=== PATIENT | female | born 1960 | race Caucasian/White ===

== ENCOUNTER 2017-08-23 15:06 | Emergency (ER) | payer OTHER, SELFPAY ==
[2017-08-23] MEDS ORDERED: Ketorolac Tromethamine 30 MG/ML VIAL ONE (16:20)
== END 2017-08-23 16:41 | disposition home or self-care (01) ==
LOC: ERS 15:06
DX: M54.41 Lumbago with sciatica, right side (principal); I10 Essential (primary) hypertension; G43.909 Migraine, unspecified, not intractable, without status migrainosus; I25.10 Atherosclerotic heart disease of native coronary artery without angina pectoris; E11.9 Type 2 diabetes mellitus without complications; F32.9 Major depressive disorder, single episode, unspecified; Z79.4 Long term (current) use of insulin; Z87.891 Personal history of nicotine dependence
CPT/HCPCS: 96372; J1885

== ENCOUNTER 2017-09-27 12:09 | Emergency (ER) | payer OTHER, SELFPAY ==
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
--- NOTE | 2017-09-27 13:10 | RAD ---
THREE VIEWS THORACIC SPINE: Indication: Back injury. Comparison: None. IMPRESSION: There is post-surgical change of prior CABG. There is multilevel spondylosis of the thoracic spine. N o acute fracture or subluxation is evident. There are surgical clips within the right upper quadrant of the abdomen. POS: [facility]
[2017-09-27] MEDS ORDERED: Diazepam 5 MG TAB ONE (13:13)
== END 2017-09-27 14:07 | disposition home or self-care (01) ==
LOC: ERS 12:09
DX: M25.512 Pain in left shoulder (principal); G43.909 Migraine, unspecified, not intractable, without status migrainosus; I25.10 Atherosclerotic heart disease of native coronary artery without angina pectoris; E11.9 Type 2 diabetes mellitus without complications; F32.9 Major depressive disorder, single episode, unspecified; I10 Essential (primary) hypertension; Z79.4 Long term (current) use of insulin; Z87.891 Personal history of nicotine dependence; Z79.899 Other long term (current) drug therapy; V49.60XA Unspecified car occupant injured in collision with unspecified motor vehicles in traffic accident, initial encounter
CPT/HCPCS: 72072

== ENCOUNTER 2017-11-28 18:55 | Emergency (ER) | payer OTHER, SELFPAY ==
[2017-11-28] MEDS ORDERED: Ondansetron ODT 4 MG TAB ONE (20:18)
--- NOTE | 2017-11-28 20:56 | RAD ---
FOUR VIEWS RIGHT KNEE 11/28/17 HISTORY: Right knee pain after slipping and falling today. FINDINGS: There is diffuse osteopenia. No fracture or dislocation is seen. There is no joint space narrowing id entified. There is a small joint effusion present. Minimal vascular calcifications are seen posterior to the knee. IMPRESSION: 1. Osteopenia without evidence of an acute fracture. 2. Small suprapatellar joint effusion. POS: [facility]
== END 2017-11-28 20:48 | disposition home or self-care (01) ==
LOC: ERS 18:55
DX: S83.91XA Sprain of unspecified site of right knee, initial encounter (principal); I10 Essential (primary) hypertension; G43.909 Migraine, unspecified, not intractable, without status migrainosus; I25.10 Atherosclerotic heart disease of native coronary artery without angina pectoris; E11.9 Type 2 diabetes mellitus without complications; F32.9 Major depressive disorder, single episode, unspecified; Z79.4 Long term (current) use of insulin; Z87.891 Personal history of nicotine dependence; W01.0XXA Fall on same level from slipping, tripping and stumbling without subsequent striking against object, initial encounter
CPT/HCPCS: 96372; J2270; Q0162

== ENCOUNTER 2017-12-06 21:05 | Emergency (ER) | payer SELFPAY ==
[2017-12-06] MEDS ORDERED: Ketorolac Tromethamine 30 MG/ML VIAL ONE (22:56)
== END 2017-12-06 23:12 | disposition home or self-care (01) ==
LOC: ERS 21:05
DX: M25.561 Pain in right knee (principal); I10 Essential (primary) hypertension; G43.909 Migraine, unspecified, not intractable, without status migrainosus; I25.10 Atherosclerotic heart disease of native coronary artery without angina pectoris; E11.9 Type 2 diabetes mellitus without complications; Z79.4 Long term (current) use of insulin; F32.9 Major depressive disorder, single episode, unspecified; Z87.891 Personal history of nicotine dependence; Z79.899 Other long term (current) drug therapy; W22.03XD Walked into furniture, subsequent encounter
CPT/HCPCS: 96372; J1885

== ENCOUNTER 2018-01-29 18:45 | Emergency (ER) | payer SELFPAY ==
--- NOTE | 2018-01-29 19:20 | RAD ---
FOUR VIEWS OF THE RIGHT KNEE: 01/29/18 INDICATION: Right knee pain. COMPARISON: Prior exam dated 11/28/17. FINDINGS: No acute fracture or subluxation is evident. There is a mild joint capsular distention. IMPRESSION: No acute osseous abnormality with mild joint capsular distention. POS: [facility]
[2018-01-29] MEDS ORDERED: Ketorolac Tromethamine 30 MG/ML VIAL ONE (20:54)
== END 2018-01-29 20:58 | disposition home or self-care (01) ==
LOC: ERS 18:45
DX: M25.561 Pain in right knee (principal); G43.909 Migraine, unspecified, not intractable, without status migrainosus; I25.10 Atherosclerotic heart disease of native coronary artery without angina pectoris; E11.9 Type 2 diabetes mellitus without complications; F32.9 Major depressive disorder, single episode, unspecified; Z87.891 Personal history of nicotine dependence; Z79.4 Long term (current) use of insulin
CPT/HCPCS: 96372; J1885

== ENCOUNTER 2018-02-04 05:18 | Emergency (ER) | payer SELFPAY ==
[2018-02-04 05:59] LABS: #Eosinphils 0.2 thou/uL (0.0-0.7); #Lymphocytes 1.5 thou/uL (1.20-3.40); #Monocytes 0.4 thou/uL (0.11-0.59); #Neutrophils 4.8 thou/uL (1.40-6.50); %Basophils 0.5 % (0.0-1.0); %Eosinophils 2.7 % (0.0-10.0); %Lymphocytes 21.5 % (21.0-51.0); %Monocytes 5.6 % (0.0-10.0); %Neutrophils 69.7 % (42.0-75.0); Mean Corpuscular HGB CONC 34.6 g/dL (32.0-36.0); Mean Corpuscular Hemoglobin 30.5 pg (27.0-31.0); Mean Corpuscular Volume 88.1 fl (81.0-99.0); Mean Platelet Volume 6.9 fL (7.4-10.4); Platelet Count 264 thou/uL (130-400); RBC Distribution Width 11.5 % (11.5-14.5); Red Blood Cell (RBC) Count 3.62 mill/uL (4.20-5.40); White Blood Cell (WBC) Count 6.9 thou/uL (4.8-10.8)
[2018-02-04 06:22] LABS: ALT (SGPT) 21 U/L (8-55); AST (SGOT) 21 U/L (5-34); Albumin 4.2 g/dL (3.5-5.0); Alkaline Phosphatase 85 U/L (40-150); Anion Gap 17 mmol/L (10-20); BUN (Urea Nitrogen) 36 mg/dL (9.8-20.1); Bilirubin, Total 0.3 mg/dL (0.2-1.2); Calc. Creatinine Clearance 0 mL/min (70-130); Calcium 9.3 mg/dL (7.8-10.44); Carbon Dioxide 20 mmol/L (22-29); Chloride 103 mmol/L (98-107); Estimated GFR-MDRD 49; Globulin 2.5 g/dL (2.4-3.5); Glucose 83 mg/dL (70-105); Potassium 3.7 mmol/L (3.5-5.1); Protein, Total 6.7 g/dL (6.0-8.3); Sodium 136 mmol/L (136-145)
[2018-02-04 06:37] LABS: Bilirubin Negative (Negative); Blood, Urine Negative (Negative); Clarity CLEAR (Clear); Glucose, Urine (Dipstick) Negative (Negative); Leukocyte Negative (Negative); Nitrite Positive (Negative); Protein, Urine (Dipstick) Negative (Neg-Trace); Specific Gravity, Urine 1.011 (1.002-1.036); Urobilinogen 0.2 mg/dL (0.2-1.0)
[2018-02-04 06:40] LABS: Bacteria/HPF 1+ HPF (None Seen); Hyaline Casts/LPF 0-3 HYALINE CAST LPF (0-3 Hyaline); RBC/HPF 0-3 HPF (0-3); Squamous Epithelial None Seen HPF (0-3); WBC/HPF 0-3 HPF (0-3)
== END 2018-02-04 07:02 | disposition home or self-care (01) ==
LOC: ERS 05:18
DX: E11.649 Type 2 diabetes mellitus with hypoglycemia without coma (principal); I10 Essential (primary) hypertension; G43.909 Migraine, unspecified, not intractable, without status migrainosus; I25.10 Atherosclerotic heart disease of native coronary artery without angina pectoris; F32.9 Major depressive disorder, single episode, unspecified; Z87.891 Personal history of nicotine dependence; Z79.4 Long term (current) use of insulin
CPT/HCPCS: 36416; 80053; 81003; 81015; 85025; 99285

== ENCOUNTER 2018-02-07 20:37 | Emergency (ER) | payer SELFPAY | END 2018-02-07 21:14 | disposition home or self-care (01) | LOC: ERS 20:37 | DX: H65.92 Unspecified nonsuppurative otitis media, left ear (principal); E11.9 Type 2 diabetes mellitus without complications; I10 Essential (primary) hypertension; G43.909 Migraine, unspecified, not intractable, without status migrainosus; I25.10 Atherosclerotic heart disease of native coronary artery without angina pectoris; F32.9 Major depressive disorder, single episode, unspecified; Z79.4 Long term (current) use of insulin; Z87.891 Personal history of nicotine dependence; Z79.899 Other long term (current) drug therapy | CPT/HCPCS: 99282 ==

== ENCOUNTER 2018-08-30 11:40 | Emergency (ER) | payer SELFPAY ==
[2018-08-30 12:21] LABS: #Basophils 0.1 thou/uL (0.0-0.2); #Eosinphils 0.1 thou/uL (0.0-0.7); #Lymphocytes 1.2 thou/uL (1.20-3.40); #Monocytes 0.3 thou/uL (0.11-0.59); #Neutrophils 3.6 thou/uL (1.40-6.50); %Basophils 1.3 % (0.0-1.0); %Eosinophils 2.5 % (0.0-10.0); %Lymphocytes 22.1 % (21.0-51.0); %Monocytes 4.9 % (0.0-10.0); %Neutrophils 69.2 % (42.0-75.0); Hemoglobin 12.6 g/dL (12.0-16.0); Mean Corpuscular HGB CONC 32.5 g/dL (32.0-36.0); Mean Corpuscular Hemoglobin 29.6 pg (27.0-31.0); Mean Corpuscular Volume 91.1 fL (78.0-98.0); Mean Platelet Volume 7.6 fL (7.4-10.4); Platelet Count 241 thou/uL (130-400); RBC Distribution Width 11.6 % (11.5-14.5); Red Blood Cell (RBC) Count 4.26 mill/uL (4.20-5.40); White Blood Cell (WBC) Count 5.2 thou/uL (4.8-10.8)
[2018-08-30 12:37] LABS: ALT (SGPT) 20 U/L (8-55); AST (SGOT) 23 U/L (5-34); Acetaminophen Less than 6.0 mcg/mL (10.0-30.0); Albumin 4.2 g/dL (3.5-5.0); Alcohol Less than 10 mg/dL (Less than 10); Alkaline Phosphatase 104 U/L (40-150); Anion Gap 15 mmol/L (10-20); BUN (Urea Nitrogen) 32 mg/dL (9.8-20.1); Bilirubin, Total 0.6 mg/dL (0.2-1.2); Calc. Creatinine Clearance 0 mL/min (70-130); Calcium 9.8 mg/dL (7.8-10.44); Carbon Dioxide 24 mmol/L (22-29); Chloride 101 mmol/L (98-107); Estimated GFR-MDRD 43; Globulin 2.9 g/dL (2.4-3.5); Glucose 270 mg/dL (70-105); Potassium 4.2 mmol/L (3.5-5.1); Protein, Total 7.1 g/dL (6.0-8.3); Salicylate Less than 8.0 mg/dL (15.0-30.0); Sodium 136 mmol/L (136-145)
[2018-08-30 12:40] LABS: CKMB 1.3 ng/mL (0-6.6); Troponin I Less than 0.010 ng/mL (< 0.028)
[2018-08-30 12:50] LABS: Bilirubin Negative (Negative); Blood, Urine Negative (Negative); Clarity CLOUDY (Clear); Glucose, Urine (Dipstick) 500 mg/dL (Negative); Leukocyte Small (Negative); Nitrite Positive (Negative); Protein, Urine (Dipstick) Negative (Neg-Trace); pH, Urine 5.5 (5.0-9.0)
[2018-08-30 12:53] LABS: Bacteria/HPF 4+ HPF (None Seen); Hyaline Casts/LPF 4-6 HYALINE CAST LPF (0-3 Hyaline); Pathc Cast-AUWi Flag 2.03 (0-2.49); RBC/HPF 0-3 HPF (0-3)
[2018-08-30 13:00] LABS: Amphetamine Not Detected (NotDetected); Barbiturates Screen Not Detected (NotDetected); Benzodiazepine Screen Not Detected (NotDetected); Cocaine Metabolite Screen Not Detected (NotDetected); Medtox Reader # READER 1; Methadone Not Detected (NotDetected); Methamphetamine Not Detected (NotDetected); Opiate Screen Not Detected (NotDetected); Phencyclidine (PCP) Not Detected (NotDetected); THC/Cannabinoid Screen Not Detected (NotDetected); Tricyclic Screen Detected (NotDetected)
[2018-08-30 13:01] LABS: Medtox Control Line Valid? VALID (VALID); Oxycodone Screen Not Detected (NotDetected)
[2018-08-30] MEDS ORDERED: cefTRIAXone\\ROCEPHIN 1 GM VIAL ONE (13:40)
== END 2018-08-30 16:01 | disposition home or self-care (01) ==
LOC: EEVIPCON 11:40 → ERS 11:40
DX: F32.9 Major depressive disorder, single episode, unspecified (principal); E11.65 Type 2 diabetes mellitus with hyperglycemia; N39.0 Urinary tract infection, site not specified; I10 Essential (primary) hypertension; G43.909 Migraine, unspecified, not intractable, without status migrainosus; I25.10 Atherosclerotic heart disease of native coronary artery without angina pectoris; Z79.4 Long term (current) use of insulin; Z87.891 Personal history of nicotine dependence; Z79.899 Other long term (current) drug therapy; Z98.2 Presence of cerebrospinal fluid drainage device
CPT/HCPCS: 36416; 80053; 80306; 80307; 81003; 81015; 82553; 84484; 85025; 87077; 87086; 87186; 93005; 96361; 96365; J0696

== ENCOUNTER 2018-09-24 22:38 | Observation (INO) | payer SELFPAY ==
[2018-09-24 23:46] LABS: #Basophils 0.1 thou/uL (0.0-0.2); #Eosinphils 0.2 thou/uL (0.0-0.7); #Lymphocytes 1.7 thou/uL (1.20-3.40); #Monocytes 0.3 thou/uL (0.11-0.59); #Neutrophils 3.4 thou/uL (1.40-6.50); %Eosinophils 3.3 % (0.0-10.0); %Lymphocytes 29.5 % (21.0-51.0); %Monocytes 5.6 % (0.0-10.0); %Neutrophils 60.6 % (42.0-75.0); Mean Corpuscular HGB CONC 35.3 g/dL (32.0-36.0); Mean Corpuscular Hemoglobin 30.9 pg (27.0-31.0); Mean Corpuscular Volume 87.7 fL (78.0-98.0); Mean Platelet Volume 7.7 fL (7.4-10.4); Platelet Count 277 thou/uL (130-400); RBC Distribution Width 11.3 % (11.5-14.5); Red Blood Cell (RBC) Count 3.88 mill/uL (4.20-5.40); White Blood Cell (WBC) Count 5.6 thou/uL (4.8-10.8)
--- NOTE | 2018-09-24 23:50 | RAD ---
CHEST ONE VIEW PORTABLE: 09/24/18 HISTORY: 58-year-old female with history of nausea and vomiting. COMPARISON: 10/30/16. FINDINGS: Postop midline sternotomy. Minimal stable heterogeneous bone mineralization in the right humeral head . No confluent pneumonia, overt edema or pleural effusion. IMPRESSION: No acute intrathoracic disease. POS: [facility]
[2018-09-24 23:58] LABS: Bilirubin Negative (Negative); Blood, Urine Negative (Negative); Clarity CLEAR (Clear); Glucose, Urine (Dipstick) >=1000 mg/dL (Negative); Leukocyte Negative (Negative); Nitrite Negative (Negative); Protein, Urine (Dipstick) Negative (Neg-Trace); Specific Gravity, Urine 1.028 (1.002-1.036); Urobilinogen 0.2 mg/dL (0.2-1.0); pH, Urine 5.5 (5.0-9.0)
[2018-09-25 00:07] LABS: ALT (SGPT) 27 U/L (8-55); AST (SGOT) 21 U/L (5-34); Albumin 4.3 g/dL (3.5-5.0); Alkaline Phosphatase 146 U/L (40-150); Anion Gap 17 mmol/L (10-20); BUN (Urea Nitrogen) 34 mg/dL (9.8-20.1); Bilirubin, Total 0.7 mg/dL (0.2-1.2); Calc. Creatinine Clearance 0 mL/min (70-130); Calcium 9.4 mg/dL (7.8-10.44); Carbon Dioxide 21 mmol/L (22-29); Chloride 92 mmol/L (98-107); Estimated GFR-MDRD 31; Globulin 2.7 g/dL (2.4-3.5); Potassium 4.3 mmol/L (3.5-5.1); Sodium 126 mmol/L (136-145)
[2018-09-25 00:15] LABS: Glucose 772 mg/dL (70-105)
--- NOTE | 2018-09-25 01:00 | PDOC.FPRHP ---
- History of Present Illness Chief Complaint: high sugars History of Present Illness: Ms. Orozco presents to the ED after having high sugars at home She reports general malaise for today, sugars in the 200s yesterday and then today greater than 400 after giving herself additional lantus to her normal home dose. She reports most recent HbA1c around 10, she is taking her medicines as prescribed. She is not sure the name of her PCP but is on the first floor of a building on . She denies any CP, SOB, abdominal pain, nausea, vomiting or diarrhea. She had a bladder infection treated in the ED 4 weeks ago with abx that she believes to be resolved. ED Course: 1 L NS 6 units novolin CBC, CMP, BHB, trop CXR, UA, sOSM - Allergies/Adverse Reactions Allergies Allergy/AdvReac Type Severity Reaction Status Date / Time Iodine and Iodide Containing Allergy Verified 10/21/16 10:15 Produc - Home Medications Medication Instructions Recorded Confirmed Type Aspirin [Aspirin Chewable Tablet] 81 mg PO QAM 09/26/16 09/25/18 History Metoprolol Tartrate 50 mg PO BID #60 tablet 09/27/16 09/25/18 Rx Amitriptyline HCl 100 mg PO HS 09/25/18 09/25/18 History Atorvastatin Calcium 80 mg PO DAILY 09/25/18 09/25/18 History Clopidogrel Bisulfate [Clopidogrel] 75 mg PO DAILY 09/25/18 09/25/18 History Gabapentin 600 mg PO TID 09/25/18 09/25/18 History Insulin Detemir [Levemir] 30 unit SQ BID 09/25/18 09/25/18 History Isosorbide Mononitrate [Isosorbide 30 mg PO DAILY 09/25/18 09/25/18 History Mononitrate ER] Lisinopril 20 mg PO DAILY 09/25/18 09/25/18 History Ubidecarenone [Co Q-10] 100 mg PO DAILY 09/25/18 09/25/18 History metFORMIN [Glucophage] 1,000 mg PO BID-WM 09/25/18 09/25/18 History - History PMHx:DMII, HTN, CAD PSHx: CABGx3 FHx: NC Social: former tobacco user - Review of Systems General: reports: fatigue. denies: fever/chills, weight/appetite/sleep changes Eyes: denies: vision changes Respiratory: denies: cough, congestion, shortness of breath Cardiovascular: denies: chest pain, palpitation, edema Gastrointestinal: denies: nausea, vomiting, diarrhea Genitourinary: denies: incontinence, dysuria Skin: reports: lesions. denies: rashes Musculoskeletal: denies: pain, tenderness Neurological: denies: numbness, syncope - Vital signs BP: 147/88 HR: 96 RR: 16 Tmax: 98.5 Pox: 98% on RA Wt: 68kg - Physical Exam Constitutional: NAD HEENT: normocephalic and atraumatic, EOMI, grossly normal vision, grossly normal hearing, other (dry MM) Neck: supple, trachea midline, no LAD Chest: no-tender to palpation Heart: RRR, normal S1/S2, no murmurs/rubs/gallops, pulses present, no edema Lungs: CTAB, no respiratory distress, good air movement Abdomen: soft, non-tender, bowel sounds present, no masses/distention Musculoskeletal: normal structure, normal tone Neurological: no focal deficit, CN II-XII intact Skin: no rash/lesions, good turgor, capillary refill <2 seconds Heme/Lymphatic: no unusual bruising or bleeding Psychiatric: normal mood and affect FMR H&P: Results - Labs Result Diagrams: 09/24/18 23:40 09/25/18 03:15 Lab results: WBC 5.6 thou/uL (4.8-10.8) 09/24/18 23:40 Hgb 12.0 g/dL (12.0-16.0) 09/24/18 23:40 Hct 34.0 % (36.0-47.0) L 09/24/18 23:40 MCV 87.7 fL (78.0-98.0) 09/24/18 23:40 Plt Count 277 thou/uL (130-400) 09/24/18 23:40 Neutrophils % 60.6 % (42.0-75.0) 09/24/18 23:40 Sodium 126 mmol/L (136-145) L 09/24/18 23:40 Potassium 4.3 mmol/L (3.5-5.1) 09/24/18 23:40 Chloride 92 mmol/L (98-107) L 09/24/18 23:40 Carbon Dioxide 21 mmol/L (22-29) L 09/24/18 23:40 BUN 34 mg/dL (9.8-20.1) H 09/24/18 23:40 Creatinine 1.70 mg/dL (0.6-1.1) H 09/24/18 23:40 Glucose 772 mg/dL (70-105) H* 09/24/18 23:40 Calcium 9.4 mg/dL (7.8-10.44) 09/24/18 23:40 Total Bilirubin 0.7 mg/dL (0.2-1.2) 09/24/18 23:40 AST 21 U/L (5-34) 09/24/18 23:40 ALT 27 U/L (8-55) 09/24/18 23:40 Alkaline Phosphatase 146 U/L (40-150) 09/24/18 23:40 Serum Total Protein 7.0 g/dL (6.0-8.3) 09/24/18 23:40 Albumin 4.3 g/dL (3.5-5.0) 09/24/18 23:40 Urine Ketones Negative mg/dL (Negative) 09/24/18 23:40 Urine Blood Negative (Negative) 09/24/18 23:40 Urine Nitrite Negative (Negative) 09/24/18 23:40 Ur Leukocyte Esterase Negative (Negative) 09/24/18 23:40 FMR H&P: A/P - Problem List (1) Hyperglycemia due to type 2 diabetes mellitus Status: Acute Code(s): E11.65 - TYPE 2 DIABETES MELLITUS WITH HYPERGLYCEMIA Qualifiers: Diabetes mellitus fci insulin use: with intermediate card tender use Qualified Code( s): E11.65 - Type 2 diabetes mellitus with hyperglycemia; Z79.4 - intermediate accountant ( current) use of insulin (2) JOSE G (acute kidney injury) Status: Acute Code(s): N17.9 - ACUTE KIDNEY FAILURE, UNSPECIFIED Comment: Secondary to volume depletion and dehydration, improving, avoid nephrotoxic meds and contrast media. (3) CAD (coronary artery disease) Status: Chronic Code(s): I25.10 - ATHSCL HEART DISEASE OF [place] CORONARY ARTERY W/O ANG PCTRS Qualifiers: Coronary Disease-Associated Artery/Lesion type: [place] artery [place] vs. transplanted heart: [place] heart Associated angina: without angina Qualified Code(s): I25.10 - Atherosclerotic heart disease of [place] coronary artery without angina pectoris (4) Hypertension Status: Chronic Code(s): I10 - ESSENTIAL (PRIMARY) HYPERTENSION Qualifiers: Hypertension type: essential hypertension Qualified Code(s): I10 - Essential (primary) hypertension Comment: Stable - Plan Hyperglycemia - glu 772, AG 13, BHB - on admission - phosphorous ordered, BMP q4hr, glu accucheck q1hr - insulin drip protocol, advance diet, LR 250 in ED - glu down to 300 range, tolerating diet on drip for 1 hour - ok to medical JOSE G - Cr 1.7 - IVF, monitor BMP CAD - neg trop, no chest pain - continue to monitor DMII - resume home lantus once drip stopped - moderate SSI HTN - pressure above goal on admission, monitor vitals q 4hr - continue home medications code: full ppx: lovenox Disposition/LOS: admit to IMCU, monitor gap, advance diet, continue insulin drip 1 hr post closed gap/advanced diet FMR H&P: Upper Level - Pertinent history 58 y/o f with T2DM, CAD s/p CABG in 2003 presents for weakness. States it began this AM. BG elevated recetnyl ~300 yesterday but 125 this AM. Associated increased urination and dry mouth, feeling in a fog today, with mild HILTON on Saturday. Has been taking Lantus as Rx she states. Also has a history of Hospitalizations for elevated BG. Says last A1c was 10 ~1month ago in [place]. She recently moved to the area. Denies chest pain, SOB, dysuria, focal weakness, paresthesia, vision changes, stool changes, fever or chills. - Pertinent findings Exam: GEN: NAD CARDIO: No MRG, RRR LUNGS: CTAB, no wheezes, ABD: soft, nontender NEURO: A&O x3, slow answers and slightly impaired memory, but unsure of baseline - Plan Date/Time: 09/25/18 0056 Gama Aguayo, have evaluated this patient and agree with findings/plan as outlined by public relations intern resident. Pertinent changes/additions are listed here. 1. HHS - BG >700 with Azotemia, mild AMS, and dehydration and serum Osm 311. Will place on insulin drip and begin aggressive intravascular repletion with IVF. Closely monitor electrolytes and glucose levels. Ketone negative. VBG pending, unlikely acidotic. I suspect she is not taking her insulin as prescribed. 2. Acute Renal Failure with azotemia - Likely 2/2 #1 and suspect prerenal cause. Will give IVF and continue to monitor. Order Urine Na. AG is 13. 3. CAD - No active chest pain or SOB. Will continue to monitor. 4. T2DM - Anticipate transition back to SQ insulin 5 .HTN - Continue home medications Attending Addendum - Attending Addendum Date/Time: 09/25/18 0140 I personally evaluated the patient and discussed the management with Dr. Barger and Dr. Fonseca I agree with the History, Examination, Assessment and Plan documented above with any addition or exceptions noted below. 58 yo female with history of IDDM, CAD, and HTN presents with elevated glucose at home. Patient reports elevated glucose tonight with polyuria, polydypsia, and mental clouding. Patient denies s/sx of infection. Reports compliance with medication. Recently moved. VS reviewed. Labs reviewed. Imaging reviewed. IDDM with hyperosmolar hyperglycemia: No gap. No ketosis. vBlood gas WNL. No concerns for HHS at this time. Will correct with SSI and IV hydration. Monitor ON and likely d/c in the AM JOSE G on CKD: Likely pre-renal due to glucosauria related dehydration. Repeat labs in AM. Continue IVFs. Dehydration CAD s/p CABG Dispo: Place on obs overnight for insulin and IVFs.
[2018-09-25] MEDS ORDERED: HumaLOG 300 UNITS/3 ML VIAL ONE ×2 (01:14)
[2018-09-25] MEDS ORDERED: Sodium Chloride 0.9% 1,000 ML IV PRN ×4 (02:41)
[2018-09-25] MEDS ORDERED: D5 1/2 NS w/20 mEq KCL 1,000 ML IV PRN (02:41)
[2018-09-25] MEDS ORDERED: Lactated Ringer's 1,000 ML IV SCH (02:41)
[2018-09-25] MEDS ORDERED: NS 0.9% w/ 20 MEQ KCL 1,000 ML IV PRN ×2 (02:41)
[2018-09-25] MEDS ORDERED: Acetaminophen 325 MG TAB PO PRN (02:41)
[2018-09-25] MEDS ORDERED: CCU Electrolyte Replacement 1 EACH IVPB ONE (02:41)
[2018-09-25] MEDS ORDERED: Dextrose 5 %-0.45 % NaCl 1,000 ML IV PRN (02:41)
[2018-09-25] MEDS ORDERED: D5 1/2 NS w/20 mEq KCL 0 ML ONE (03:05)
[2018-09-25 03:45] LABS: Anion Gap 12 mmol/L (10-20); BUN (Urea Nitrogen) 28 mg/dL (9.8-20.1); Calc. Creatinine Clearance 0 mL/min (70-130); Carbon Dioxide 24 mmol/L (22-29); Chloride 99 mmol/L (98-107); Estimated GFR-MDRD 46; Glucose 452 mg/dL (70-105); Phosphorus 2.8 mg/dL (2.3-4.7); Sodium 131 mmol/L (136-145)
[2018-09-25] MEDS ORDERED: Dextrose 5% in Water 1,000 ML IV PRN (05:04)
[2018-09-25] MEDS ORDERED: HumaLOG 300 UNITS/3 ML VIAL SC PRN ×2 (05:04)
[2018-09-25] MEDS ORDERED: Dextrose 50% Abboject 50 ML SYRINGE SLOW IVP PRN (05:04)
[2018-09-25] MEDS: Lactated Ringer's 1,000 ML IV SCH ×2 (06:16→12:56)
[2018-09-25 06:33] VITALS: BMI 27.8
[2018-09-25] MEDS ORDERED: metFORMIN 500 MG TAB PO SCH (08:00)
[2018-09-25] MEDS: Gabapentin 300 MG CAP PO SCH ×2 (08:19→14:22)
[2018-09-25 08:58] LABS: Base Excess-Venous 1.6 mmol/L (0 (+/- 2.5)); Bicarbonate (HCO3v) 26.6 mmol/L (22.0-29.0); CO2 Tension (PvCO2) 42.5 mmHg (41.0-51.0); Hemoglobin - Calc 11.9 g/dL (12.0-18.0); O2 Tension (PvO2) 86.4 mmHg (35.0-45.0); T. Carbon Dioxide 27.9 mmol/L (1.0-85.0); pH (Venous) 7.405 (7.35-7.45); vO2 Saturation-calc 96.6 % (94-98)
[2018-09-25] MEDS ORDERED: Lisinopril 20 MG TAB PO SCH (09:00)
[2018-09-25] MEDS ORDERED: Insulin Glargine 30 UNITS in Pre-Filled Syringe 1 EACH SC SCH ×2 (09:00→21:00)
[2018-09-25] MEDS ORDERED: Metoprolol Tartrate 50 MG TAB PO SCH (09:00)
[2018-09-25] MEDS ORDERED: Non-Formulary Item 1 EACH (Insulin Detemir [Levemir] 30 UNIT) SQ SCH (09:00)
[2018-09-25] MEDS ORDERED: Clopidogrel Bisulfate 75 MG TAB PO SCH (09:00)
[2018-09-25] MEDS ORDERED: Ubidecarenone 50 MG CAP PO SCH (09:00)
[2018-09-25] MEDS ORDERED: Enoxaparin Sodium 40 MG/0.4 ML SYRINGE SC SCH (09:00)
[2018-09-25 12:34] VITALS: BP 123/71; TEMP 98.1
--- NOTE | 2018-09-25 14:15 | PRG ---
DATE OF SERVICE: 09/25/2018 ADDENDUM: This is an addendum to the note of Dr. Chris Stanton. Ms. Orozco is a 58-year-old, type 2 diabetic patient, who was admitted with hyperosmolar hyperglycemic syndrome. On admission, her glucose level was 772. On admission; sodium is 126, potassium 4.3, chloride 92, bicarbonate 21, anion gap 17, BUN 34, creatinine 1.7. These numbers were consistent with severe hyperglycemia. She was started on insulin drip and IV fluids. By the time, we were making rounds, her glucose level had come down to 226. She was awake, alert, no distress, tolerating a regular diet. If these trends continue, she will be discharged later this afternoon. Job ID: [id number]
[2018-09-25] MEDS ORDERED: Amitriptyline HCl 100 MG TAB PO SCH (21:00)
[2018-09-25] MEDS ORDERED: Atorvastatin Calcium 40 MG TAB PO SCH (21:00)
--- NOTE | 2018-09-27 13:37 | EKG ---
Test Reason : DKA Blood Pressure : / mmHG Vent. Rate : 088 BPM Atrial Rate : 088 BPM P-R Int : 252 ms QRS Dur : 084 ms QT Int : 384 ms P-R-T Axes : 050 079 063 degrees QTc Int : 464 ms Sinus rhythm with 1st degree A-V block Possible Left atrial enlargement Borderline ECG Confirmed by ALLY COPE DO ([id number]), offline editor JASKARAN BORREGO ([id number]) on 09/27/2018 1:37:25 PM Referred By: PRISCA Confirmed By:ALLY COPE DO
== END 2018-09-25 16:10 | disposition home or self-care (01) ==
LOC: ERS 22:38 → ERHOLD 09-25 01:05 → T4-B 09-25 05:35
PROVIDERS: ADMIT Student in an Organized Health Care Education/Training Program; ATTEND Student in an Organized Health Care Education/Training Program
DX: E11.65 Type 2 diabetes mellitus with hyperglycemia (principal); N17.9 Acute kidney failure, unspecified; I25.10 Atherosclerotic heart disease of native coronary artery without angina pectoris; I10 Essential (primary) hypertension; Z87.891 Personal history of nicotine dependence; Z79.02 Long term (current) use of antithrombotics/antiplatelets; Z79.4 Long term (current) use of insulin; Z79.82 Long term (current) use of aspirin; Z79.899 Other long term (current) drug therapy; Z91.041 Radiographic dye allergy status; Z95.1 Presence of aortocoronary bypass graft
CPT/HCPCS: 36416; 71045; 80048; 80053; 81003; 82010; 82330; 82803; 83930; 84100; 84484; 85014; 85025; 93005; 96360; 96361; 96365; 96366; 96372; G0378; J1650; J1815; J7050

== ENCOUNTER 2018-10-07 19:12 | Emergency (ER) | payer SELFPAY ==
[2018-10-07 19:42] LABS: #Eosinphils 0.2 thou/uL (0.0-0.7); #Lymphocytes 1.5 thou/uL (1.20-3.40); #Monocytes 0.3 thou/uL (0.11-0.59); #Neutrophils 4.2 thou/uL (1.40-6.50); %Basophils 0.8 % (0.0-1.0); %Eosinophils 3.3 % (0.0-10.0); %Monocytes 4.4 % (0.0-10.0); %Neutrophils 67.6 % (42.0-75.0); Hemoglobin 11.6 g/dL (12.0-16.0); Mean Corpuscular HGB CONC 34.4 g/dL (32.0-36.0); Mean Corpuscular Hemoglobin 30.3 pg (27.0-31.0); Mean Corpuscular Volume 87.9 fL (78.0-98.0); Mean Platelet Volume 7.9 fL (7.4-10.4); Platelet Count 260 thou/uL (130-400); RBC Distribution Width 11.1 % (11.5-14.5); Red Blood Cell (RBC) Count 3.84 mill/uL (4.20-5.40); White Blood Cell (WBC) Count 6.2 thou/uL (4.8-10.8)
[2018-10-07 20:00] LABS: Phosphorus 2.8 mg/dL (2.3-4.7)
[2018-10-07 20:02] LABS: ALT (SGPT) 18 U/L (8-55); AST (SGOT) 16 U/L (5-34); Albumin 4.2 g/dL (3.5-5.0); Alkaline Phosphatase 114 U/L (40-150); Anion Gap 14 mmol/L (10-20); BUN (Urea Nitrogen) 34 mg/dL (9.8-20.1); Bilirubin, Total 0.4 mg/dL (0.2-1.2); Calc. Creatinine Clearance 0 mL/min (70-130); Calcium 9.6 mg/dL (7.8-10.44); Carbon Dioxide 23 mmol/L (22-29); Chloride 98 mmol/L (98-107); Estimated GFR-MDRD 35; Globulin 2.9 g/dL (2.4-3.5); Glucose 442 mg/dL (70-105); Potassium 4.2 mmol/L (3.5-5.1); Protein, Total 7.1 g/dL (6.0-8.3); Sodium 131 mmol/L (136-145)
[2018-10-07 20:04] LABS: Bilirubin Negative (Negative); Blood, Urine Negative (Negative); Clarity CLEAR (Clear); Glucose, Urine (Dipstick) >=1000 mg/dL (Negative); Leukocyte Negative (Negative); Nitrite Positive (Negative); Protein, Urine (Dipstick) Negative (Neg-Trace); Urobilinogen 0.2 mg/dL (0.2-1.0); pH, Urine 5.5 (5.0-9.0)
[2018-10-07 20:05] LABS: Bacteria/HPF 4+ HPF (None Seen); Hyaline Casts/LPF 0-3 HYALINE CAST LPF (0-3 Hyaline); Pathc Cast-AUWi Flag 0.58 (0-2.49); RBC/HPF 0-3 HPF (0-3)
[2018-10-07] MEDS ORDERED: cefTRIAXone\\ROCEPHIN 1 GM VIAL ONE (20:52)
== END 2018-10-07 22:25 | disposition home or self-care (01) ==
LOC: ERS 19:12
DX: N39.0 Urinary tract infection, site not specified (principal); I25.10 Atherosclerotic heart disease of native coronary artery without angina pectoris; E11.9 Type 2 diabetes mellitus without complications; E78.5 Hyperlipidemia, unspecified; I10 Essential (primary) hypertension; Z79.4 Long term (current) use of insulin; Z79.899 Other long term (current) drug therapy; Z79.82 Long term (current) use of aspirin
CPT/HCPCS: 36415; 36416; 80053; 81003; 81015; 82010; 83735; 84100; 85025; 96361; 96365; J0696

== ENCOUNTER 2019-04-10 18:38 | Emergency (ER) | payer SELFPAY ==
[2019-04-10] MEDS ORDERED: Ondansetron PF 4 MG/2 ML Vial ONE (19:12)
[2019-04-10 19:23] LABS: #Basophils 0.1 thou/uL (0.0-0.2); #Eosinphils 0.4 thou/uL (0.0-0.7); #Lymphocytes 1.9 thou/uL (1.20-3.40); #Monocytes 0.2 thou/uL (0.11-0.59); #Neutrophils 3.6 thou/uL (1.40-6.50); %Basophils 0.9 % (0.0-1.0); %Eosinophils 5.9 % (0.0-10.0); %Lymphocytes 31.7 % (21.0-51.0); %Monocytes 3.2 % (0.0-10.0); %Neutrophils 58.2 % (42.0-75.0); Hemoglobin 12.1 g/dL (12.0-16.0); Mean Corpuscular HGB CONC 35.2 g/dL (32.0-36.0); Mean Corpuscular Hemoglobin 30.4 pg (27.0-31.0); Mean Corpuscular Volume 86.3 fL (78.0-98.0); Mean Platelet Volume 8.4 fL (7.4-10.4); Platelet Count 253 thou/uL (130-400); RBC Distribution Width 11.4 % (11.5-14.5); Red Blood Cell (RBC) Count 3.97 mill/uL (4.20-5.40); White Blood Cell (WBC) Count 6.1 thou/uL (4.8-10.8)
[2019-04-10 19:24] LABS: Base Excess-Venous -1.1 mmol/L (-2.0 to 3.0); Bicarbonate (HCO3v) 22.6 mmol/L (22.0-28.0); CO2 Tension (PvCO2) 33.7 mmHg (40.0-50.0); Chloride 94 mmol/L (98-107); Hemoglobin - Calc 12.3 g/dL (12.0-16.0); Potassium 4.3 mmol/L (3.5-5.1); Sodium 127 mmol/L (138-145); T. Carbon Dioxide 23.6 mmol/L (22.0-28.0); vO2 Saturation-calc 99.5 % (60.0-85.0)
[2019-04-10] MEDS ORDERED: Insulin Regular 300 UNITS/3 ML VIAL ONE (19:39)
[2019-04-10 19:43] LABS: ALT (SGPT) 9 U/L (8-55); AST (SGOT) 9 U/L (5-34); Alkaline Phosphatase 103 U/L (40-150); Anion Gap 15 mmol/L (10-20); BUN (Urea Nitrogen) 37 mg/dL (9.8-20.1); Bilirubin, Total 0.4 mg/dL (0.2-1.2); Calc. Creatinine Clearance 0 mL/min (70-130); Calcium 9.1 mg/dL (7.8-10.44); Carbon Dioxide 21 mmol/L (22-29); Chloride 95 mmol/L (98-107); Estimated GFR-MDRD 35; Globulin 2.6 g/dL (2.4-3.5); Magnesium 2.1 mg/dL (1.6-2.6); Potassium 4.3 mmol/L (3.5-5.1); Protein, Total 6.6 g/dL (6.0-8.3); Sodium 127 mmol/L (136-145)
[2019-04-10 19:47] LABS: Glucose 603 mg/dL (70-105)
[2019-04-10 19:51] LABS: Hemoglobin A1c 10.7 % (4.0-6.0)
[2019-04-10 20:11] LABS: Bilirubin Negative (Negative); Blood, Urine Negative (Negative); Clarity CLEAR (Clear); Glucose, Urine (Dipstick) >=1000 mg/dL (Negative); Leukocyte Negative (Negative); Nitrite Positive (Negative); Protein, Urine (Dipstick) Negative (Neg-Trace)
[2019-04-10 20:14] LABS: Bacteria/HPF 4+ HPF (None Seen); Hyaline Casts/LPF 0-3 HYALINE CAST LPF (0-3 Hyaline); RBC/HPF 0-3 HPF (0-3); Squamous Epithelial 0-3 HPF (0-3); WBC/HPF 0-3 HPF (0-3)
== END 2019-04-10 21:13 | disposition home or self-care (01) ==
LOC: ERS 18:38
DX: N39.0 Urinary tract infection, site not specified (principal); E86.0 Dehydration; I10 Essential (primary) hypertension; Z79.899 Other long term (current) drug therapy
CPT/HCPCS: 36416; 80053; 81003; 81015; 82010; 82330; 82803; 83036; 83735; 85025; 96361; 96374; J1815; J2405

== ENCOUNTER 2019-05-14 16:53 | Emergency (ER) | payer SELFPAY ==
[2019-05-14 17:17] LABS: #Basophils 0.1 thou/uL (0.0-0.2); #Eosinphils 0.2 thou/uL (0.0-0.7); #Lymphocytes 1.5 thou/uL (1.20-3.40); #Monocytes 0.3 thou/uL (0.11-0.59); #Neutrophils 5.5 thou/uL (1.40-6.50); %Basophils 0.8 % (0.0-1.0); %Eosinophils 2.1 % (0.0-10.0); %Lymphocytes 19.6 % (21.0-51.0); %Monocytes 4.6 % (0.0-10.0); %Neutrophils 72.9 % (42.0-75.0); Hemoglobin 13.3 g/dL (12.0-16.0); Mean Corpuscular HGB CONC 34.4 g/dL (32.0-36.0); Mean Corpuscular Hemoglobin 29.7 pg (27.0-31.0); Mean Corpuscular Volume 86.4 fL (78.0-98.0); Mean Platelet Volume 7.8 fL (7.4-10.4); Platelet Count 304 thou/uL (130-400); RBC Distribution Width 11.4 % (11.5-14.5); Red Blood Cell (RBC) Count 4.48 mill/uL (4.20-5.40); White Blood Cell (WBC) Count 7.5 thou/uL (4.8-10.8)
[2019-05-14] MEDS ORDERED: Ondansetron PF 4 MG/2 ML Vial ONE (17:30)
[2019-05-14] MEDS ORDERED: Morphine 4 MG/ML VIAL ONE (17:30)
[2019-05-14 17:36] LABS: Bacteria/HPF 4+ HPF (None Seen); Bilirubin Negative (Negative); Blood, Urine Negative (Negative); Clarity Clear (Clear); Glucose, Urine (Dipstick) 50 mg/dL (Negative); Leukocyte Negative Leu/uL (Negative); Nitrite 1+ (Negative); Protein, Urine (Dipstick) Negative (Neg-Trace); RBC/HPF 0-3 HPF (0-3); Squamous Epithelial 0-3 HPF (0-3); Urobilinogen Normal mg/dL (Less than 2); WBC/HPF 0-3 HPF (0-3)
[2019-05-14 17:40] LABS: ALT (SGPT) 8 U/L (8-55); AST (SGOT) 14 U/L (5-34); Albumin 4.3 g/dL (3.5-5.0); Alkaline Phosphatase 100 U/L (40-150); Anion Gap 13 mmol/L (10-20); BUN (Urea Nitrogen) 36 mg/dL (9.8-20.1); Bilirubin, Total 0.4 mg/dL (0.2-1.2); Calc. Creatinine Clearance 0 mL/min (70-130); Calcium 9.6 mg/dL (7.8-10.44); Carbon Dioxide 23 mmol/L (22-29); Chloride 100 mmol/L (98-107); Estimated GFR-MDRD 55; Globulin 2.8 g/dL (2.4-3.5); Glucose 77 mg/dL (70-105); Lipase 29 U/L (8-78); Potassium 4.1 mmol/L (3.5-5.1); Protein, Total 7.1 g/dL (6.0-8.3); Sodium 132 mmol/L (136-145)
--- NOTE | 2019-05-14 17:56 | CT ---
CT abdomen and pelvis: 05/14/2019 COMPARISON: 10/18/2016 HISTORY: Pain TECHNIQUE: Axial CT imaging at 5 mm intervals through the abdomen and pelvis without contrast. Gallegos l reformatted imaging obtained. FINDINGS: The lack of contrast media limits assessment of the viscera, bowel, vascular structures, an d for lymphadenopathy. Midline sternotomy wires are present. Coronary arterial calcification noted. Imaged lung bases unrema rkable. Cholecystectomy clips are noted. No free intraperitoneal air. The liver, spleen, pancreas, adrenal glands, and kidneys demonstrate no acute findings. There is no h ydronephrosis or nephrolithiasis noted on either side. Limited assessment of the bowel demonstrate demonstrates no acute findings. There is scattered athero sclerotic calcifications of the abdominal aorta and its branches. Review of the osseous structures demonstrates multilevel mild lower lumbar spine facet hypertrophy. B ilateral L5 pars defects are present. There is degenerative change at the T11-12 level as well. IMPRESSION: No evidence for obstructive uropathy or nephrolithiasis.
[2019-05-14 18:03] LABS: Troponin I Less than 0.010 ng/mL (< 0.028)
[2019-05-14] MEDS ORDERED: Lidocaine Viscous Sol 2% 15 ml UD Cup ONE (18:43)
[2019-05-14] MEDS ORDERED: Mag-Al 1200 mg/1200 mg/30 ML UDCUP ONE (18:43)
== END 2019-05-14 19:02 | disposition home or self-care (01) ==
LOC: ERS 16:53
DX: R10.12 Left upper quadrant pain (principal); I25.10 Atherosclerotic heart disease of native coronary artery without angina pectoris; E11.9 Type 2 diabetes mellitus without complications; I10 Essential (primary) hypertension; E78.5 Hyperlipidemia, unspecified; Z79.899 Other long term (current) drug therapy; Z79.01 Long term (current) use of anticoagulants; Z79.82 Long term (current) use of aspirin; Z79.4 Long term (current) use of insulin
CPT/HCPCS: 36415; 74176; 80053; 81003; 81015; 83690; 84484; 85025; 93005; 96361; 96374; 96375; J2270; J2405

== ENCOUNTER 2019-05-22 17:42 | Emergency (ER) | payer SELFPAY ==
[2019-05-22] MEDS ORDERED: Famotidine/PF 20 mg/2ml Vial ONE (18:18)
[2019-05-22] MEDS ORDERED: Morphine 4 MG/ML VIAL ONE ×2 (18:18→20:21)
[2019-05-22] MEDS ORDERED: Ondansetron PF 4 MG/2 ML Vial ONE (18:18)
[2019-05-22 18:25] LABS: #Eosinphils 0.2 thou/uL (0.0-0.7); #Lymphocytes 1.5 thou/uL (1.20-3.40); #Monocytes 0.3 thou/uL (0.11-0.59); #Neutrophils 4.3 thou/uL (1.40-6.50); %Basophils 0.3 % (0.0-1.0); %Eosinophils 3.8 % (0.0-10.0); %Lymphocytes 23.5 % (21.0-51.0); %Monocytes 4.1 % (0.0-10.0); %Neutrophils 68.2 % (42.0-75.0); Hemoglobin 12.3 g/dL (12.0-16.0); Mean Corpuscular Hemoglobin 31.1 pg (27.0-31.0); Mean Corpuscular Volume 88.8 fL (78.0-98.0); Mean Platelet Volume 7.9 fL (7.4-10.4); Platelet Count 242 thou/uL (130-400); RBC Distribution Width 11.6 % (11.5-14.5); Red Blood Cell (RBC) Count 3.96 mill/uL (4.20-5.40); White Blood Cell (WBC) Count 6.3 thou/uL (4.8-10.8)
[2019-05-22 18:52] LABS: Bilirubin Negative (Negative); Blood, Urine Negative (Negative); Clarity Clear (Clear); Glucose, Urine (Dipstick) Greater than 1000 mg/dL (Negative); Leukocyte 75 Leu/uL (Negative); Nitrite 2+ (Negative); Protein, Urine (Dipstick) Negative (Neg-Trace); RBC/HPF 0-3 HPF (0-3); Squamous Epithelial 0-3 HPF (0-3); Urobilinogen Normal mg/dL (Less than 2)
[2019-05-22 18:52] LABS: ALT (SGPT) 8 U/L (8-55); AST (SGOT) 9 U/L (5-34); Albumin 3.9 g/dL (3.5-5.0); Alkaline Phosphatase 86 U/L (40-150); Anion Gap 12 mmol/L (10-20); BUN (Urea Nitrogen) 22 mg/dL (9.8-20.1); Bilirubin, Total 0.3 mg/dL (0.2-1.2); Calc. Creatinine Clearance 0 mL/min (70-130); Calcium 9.4 mg/dL (7.8-10.44); Carbon Dioxide 25 mmol/L (22-29); Chloride 98 mmol/L (98-107); Estimated GFR-MDRD 44; Glucose 460 mg/dL (70-105); Lipase 37 U/L (8-78); Potassium 4.4 mmol/L (3.5-5.1); Protein, Total 5.9 g/dL (6.0-8.3); Sodium 131 mmol/L (136-145)
[2019-05-22 18:59] LABS: Bacteria/HPF 3+ HPF (None Seen)
--- NOTE | 2019-05-22 19:01 | RAD ---
XR Chest Pa Lat STANDARD History: Chest pain. Comparison: None. Findings: Lungs are clear. No pneumothorax or effusion. Cardiac silhouette and mediastinal contours a re within normal limits. Multiple midline sternotomy wires. Right upper quadrant surgical clips. Impression: No acute intrathoracic abnormality.
--- NOTE | 2019-05-22 19:07 | CT ---
CT Abdomen Pelvis WO Con History: Left upper quadrant abdominal pain. Comparison: CT abdomen and pelvis May 14, 2019 Findings: Lung bases are clear. No pericardial effusion. No nephroureterolithiasis or hydroureteronephrosis. No secondary evidence of a recently passed stone. There is mild distention of the few loops of proximal small bowel in the left upper quadrant of the a bdomen which may be thick-walled although difficult to evaluate without intravenous contrast. Noncontrast evaluation of the liver and adrenal glands are unremarkable. Splenic size upper limits of normal. Aortoiliac contour is nonaneurysmal. No free intraperitoneal gas or fluid. The appendix is visualized and is normal. No acute osseous abno rmality. Right IIb lumbosacral transitional vertebra. Impression: Low-grade distention proximal small bowel loops without dilatation can be seen with enter itis.
== END 2019-05-22 20:47 | disposition home or self-care (01) ==
LOC: ERS 17:42
DX: K52.9 Noninfective gastroenteritis and colitis, unspecified (principal); N30.00 Acute cystitis without hematuria; I25.10 Atherosclerotic heart disease of native coronary artery without angina pectoris; E11.9 Type 2 diabetes mellitus without complications; E78.5 Hyperlipidemia, unspecified; I10 Essential (primary) hypertension; Z87.891 Personal history of nicotine dependence; Z79.4 Long term (current) use of insulin; Z79.899 Other long term (current) drug therapy; Z79.82 Long term (current) use of aspirin; Z79.01 Long term (current) use of anticoagulants
CPT/HCPCS: 36415; 36416; 71046; 74176; 80053; 81003; 81015; 83605; 83690; 84484; 85025; 93005; 94760; 96361; 96374; 96375; 96376; J2270; J2405; S0028

== ENCOUNTER 2019-07-18 11:41 | Emergency (ER) | payer SELFPAY ==
[2019-07-18 12:38] LABS: #Basophils 0.1 thou/uL (0.0-0.2); #Eosinphils 0.2 thou/uL (0.0-0.7); #Monocytes 0.3 thou/uL (0.11-0.59); #Neutrophils 3.7 thou/uL (1.40-6.50); %Eosinophils 3.4 % (0.0-10.0); %Lymphocytes 19.5 % (21.0-51.0); %Monocytes 5.8 % (0.0-10.0); %Neutrophils 70.3 % (42.0-75.0); Hemoglobin 10.9 g/dL (12.0-16.0); Mean Corpuscular HGB CONC 35.1 g/dL (32.0-36.0); Mean Corpuscular Hemoglobin 30.6 pg (27.0-31.0); Mean Corpuscular Volume 87.1 fL (78.0-98.0); Mean Platelet Volume 7.5 fL (7.4-10.4); Platelet Count 200 thou/uL (130-400); RBC Distribution Width 11.5 % (11.5-14.5); Red Blood Cell (RBC) Count 3.58 mill/uL (4.20-5.40); White Blood Cell (WBC) Count 5.3 thou/uL (4.8-10.8)
[2019-07-18 12:59] LABS: Bilirubin Negative (Negative); Blood, Urine Negative (Negative); Clarity Clear (Clear); Glucose, Urine (Dipstick) Greater than 1000 mg/dL (Negative); Leukocyte Negative Leu/uL (Negative); Nitrite Negative (Negative); Protein, Urine (Dipstick) 10 mg/dL (Neg-Trace); Urobilinogen Normal mg/dL (Less than 2)
[2019-07-18 13:00] LABS: ALT (SGPT) 39 U/L (8-55); AST (SGOT) 34 U/L (5-34); Albumin 3.8 g/dL (3.5-5.0); Alkaline Phosphatase 169 U/L (40-110); Anion Gap 14 mmol/L (10-20); BUN (Urea Nitrogen) 22 mg/dL (9.8-20.1); Bilirubin, Total 0.6 mg/dL (0.2-1.2); Calc. Creatinine Clearance 0 mL/min (70-130); Calcium 9.2 mg/dL (7.8-10.44); Carbon Dioxide 25 mmol/L (22-29); Chloride 99 mmol/L (98-107); Estimated GFR-MDRD 43; Globulin 2.7 g/dL (2.4-3.5); Glucose 463 mg/dL (70-105); Potassium 4.5 mmol/L (3.5-5.1); Protein, Total 6.5 g/dL (6.0-8.3); Sodium 133 mmol/L (136-145)
== END 2019-07-18 14:53 | disposition home or self-care (01) ==
LOC: ERS 11:41
DX: E11.65 Type 2 diabetes mellitus with hyperglycemia (principal); T22.112A Burn of first degree of left forearm, initial encounter; E78.5 Hyperlipidemia, unspecified; I10 Essential (primary) hypertension; Z87.891 Personal history of nicotine dependence; Z79.899 Other long term (current) drug therapy
CPT/HCPCS: 36415; 36416; 80053; 81003; 82010; 85025; 96360

== ENCOUNTER 2019-10-30 19:54 | Emergency (ER) | payer SELFPAY ==
--- NOTE | 2019-10-30 20:34 | RAD ---
Radiograph right knee 4 views: DATE: 10/30/2019 HISTORY: 59-year-old female with right knee pain and swelling. COMPARISON: 01/29/2018. FINDINGS: Suprapatellar joint effusion of small to moderate-sized. Joint spaces are maintained in all 3 compart ments without major osteophytes or erosions. No fracture, dislocation, or destructive osseous lesion. Diffuse osteopenia. No interval change. IMPRESSION: 1. Osteopenia. 2. Joint effusion.
[2019-10-30] MEDS ORDERED: Morphine 4 MG/ML VIAL ONE (21:58)
== END 2019-10-30 22:35 | disposition home or self-care (01) ==
LOC: ERS 19:54
DX: M25.561 Pain in right knee (principal); M25.461 Effusion, right knee; I25.10 Atherosclerotic heart disease of native coronary artery without angina pectoris; E11.9 Type 2 diabetes mellitus without complications; E78.5 Hyperlipidemia, unspecified; E78.00 Pure hypercholesterolemia, unspecified; I10 Essential (primary) hypertension; Z79.4 Long term (current) use of insulin; Z87.891 Personal history of nicotine dependence; Z79.899 Other long term (current) drug therapy
CPT/HCPCS: 96372; J2270

== ENCOUNTER 2019-11-02 15:46 | Emergency (ER) | payer SELFPAY | END 2019-11-02 16:10 | disposition home or self-care (01) | LOC: ERS 15:46 | DX: M25.461 Effusion, right knee (principal); I25.10 Atherosclerotic heart disease of native coronary artery without angina pectoris; E11.9 Type 2 diabetes mellitus without complications; E78.5 Hyperlipidemia, unspecified; E78.00 Pure hypercholesterolemia, unspecified; I10 Essential (primary) hypertension; Z79.4 Long term (current) use of insulin; Z87.891 Personal history of nicotine dependence | CPT/HCPCS: 99281 ==

== ENCOUNTER 2020-07-09 20:37 | Emergency (ER) | payer SELFPAY ==
[2020-07-09] MEDS ORDERED: Ondansetron PF 4 MG/2 ML Vial ONE ×2 (21:07→23:41)
[2020-07-09 21:11] LABS: Base Excess-Venous 0.9 mmol/L (-2.0 to 3.0); Bicarbonate (HCO3v) 25.2 mmol/L (22.0-28.0); CO2 Tension (PvCO2) 38.1 mmHg (40.0-50.0); Calcium, Ionized 1.07 mmol/L (See Comments:); Chloride 99 mmol/L (98-107); Hemoglobin - Calc 11.7 g/dL (12.0-16.0); Potassium 4.3 mmol/L (3.5-5.1); Sodium 134 mmol/L (138-145); T. Carbon Dioxide 26.4 mmol/L (22.0-28.0)
[2020-07-09 21:12] LABS: #Eosinphils 0.3 thou/uL (0.0-0.7); #Lymphocytes 1.5 thou/uL (1.20-3.40); #Monocytes 0.3 thou/uL (0.11-0.59); #Neutrophils 4.6 thou/uL (1.40-6.50); %Basophils 0.7 % (0.0-1.0); %Eosinophils 4.3 % (0.0-10.0); %Monocytes 4.7 % (0.0-10.0); %Neutrophils 68.2 % (42.0-75.0); Hemoglobin 12.6 g/dL (12.0-16.0); Mean Corpuscular Hemoglobin 31.7 pg (27.0-31.0); Mean Corpuscular Volume 90.4 fL (78.0-98.0); Mean Platelet Volume 8.2 fL (7.4-10.4); Platelet Count 238 thou/uL (130-400); RBC Distribution Width 11.8 % (11.5-14.5); Red Blood Cell (RBC) Count 3.98 mill/uL (4.20-5.40); White Blood Cell (WBC) Count 6.7 thou/uL (4.8-10.8)
[2020-07-09 21:23] LABS: Bilirubin Negative (Negative); Blood, Urine Negative (Negative); Clarity Clear (Clear); Glucose, Urine (Dipstick) Greater than 1000 mg/dL (Negative); Ketone, Urine Negative (Negative); Leukocyte Negative Leu/uL (Negative); Nitrite Negative (Negative); Protein, Urine (Dipstick) 10 mg/dL (Neg-Trace); Specific Gravity, Urine 1.028 (1.002-1.036); Urobilinogen Normal mg/dL (Less than 2); pH, Urine 5.5 (5.0-9.0)
[2020-07-09 21:32] LABS: ALT (SGPT) 21 U/L (8-55); AST (SGOT) 19 U/L (5-34); Albumin 4.4 g/dL (3.4-4.8); Alkaline Phosphatase 103 U/L (40-110); Anion Gap 15 mmol/L (10-20); BUN (Urea Nitrogen) 27 mg/dL (9.8-20.1); Bilirubin, Total 0.6 mg/dL (0.2-1.2); Calc. Creatinine Clearance 0 mL/min (70-130); Calcium 9.3 mg/dL (7.8-10.44); Carbon Dioxide 25 mmol/L (23-31); Chloride 97 mmol/L (98-107); Estimated GFR-MDRD 35; Globulin 2.8 g/dL (2.4-3.5); Glucose 489 mg/dL (80-115); Potassium 4.2 mmol/L (3.5-5.1); Protein, Total 7.2 g/dL (6.0-8.3); Sodium 133 mmol/L (136-145)
[2020-07-09] MEDS ORDERED: Insulin Regular 300 UNITS/3 ML VIAL ONE (22:06)
--- NOTE | 2020-07-09 22:41 | RAD ---
Radiograph right knee 4 views: HISTORY: 60-year-old female with acute traumatic right knee pain due to fall. FINDINGS: Diffuse osteopenia. Small suprapatellar joint effusion versus small hemarthrosis. No dislocation. Mil d DJD of lateral compartment with sclerosis. It is difficult to determine whether or not there is a slight depression of the articular surface of the lateral tibial plateau. IMPRESSION: 1.) Small joint effusion. 2) questionable minimally depressed lateral tibial plateau fracture. Recommend CT for confirmation.
[2020-07-09] MEDS ORDERED: Morphine 4 MG/ML VIAL ONE (23:41)
--- NOTE | 2020-07-10 00:11 | CT ---
CT right knee noncontrast: 07/10/2020 11:51 PM HISTORY: 60-year-old female with acute, traumatic right knee pain after fall. Questionable lateral tibial plat eau fracture on recent plain radiograph. FINDINGS: The articular surface of the lateral tibial plateau has a cluster of a large number of subchondral cy sts, surrounded by prominent sclerosis. There is associated irregularity of the articular surface. This is responsible for the abnormal appearance on the plain radiograph. There is no fracture of the lateral tibial plateau. No fracture is identified anywhere else. There is a small suprapatellar joint effusion. There are no such changes in the contralateral medial tibial plateau. There are small osteophytes at the medial and lateral compartments. No high-grade joint space narrowing at any compartment. Diffuse osteopenia. IMPRESSION: 1.) Osteoarthrosis of the lateral compartment, with an atypically large number of subchondral cysts w ith associated sclerosis, giving the abnormal appearance on recent plain radiograph. 2) no fracture. 3) joint effusion
== END 2020-07-10 00:54 | disposition home or self-care (01) ==
LOC: ERS 20:37
DX: S80.01XA Contusion of right knee, initial encounter (principal); E11.65 Type 2 diabetes mellitus with hyperglycemia; Z79.4 Long term (current) use of insulin; E78.5 Hyperlipidemia, unspecified; E78.00 Pure hypercholesterolemia, unspecified; I10 Essential (primary) hypertension; F17.210 Nicotine dependence, cigarettes, uncomplicated; Z79.899 Other long term (current) drug therapy; W19.XXXA Unspecified fall, initial encounter
CPT/HCPCS: 36416; 80053; 81003; 82010; 82330; 82803; 85025; 96361; 96374; 96375; 96376; J1815; J2270; J2405

== ENCOUNTER 2020-07-24 19:40 | Emergency (ER) | payer SELFPAY ==
[2020-07-24] MEDS ORDERED: Acetaminophen 500 MG TAB ONE (20:09)
[2020-07-24] MEDS ORDERED: Insulin Regular 300 UNITS/3 ML VIAL ONE (20:48)
--- NOTE | 2020-07-24 21:14 | ULT ---
US Venous Doppler Rt Unilat History: Right leg pain Comparison: None. Findings: Real-time grayscale, color and spectral analysis of the right lower extremity venous system was performed. The common femoral, femoral, proximal portions greater saphenous and deep femoral veins as well as the popliteal and posterior tibial veins were interrogated. Normal flow, augmentation and compression. Impression: No deep venous thrombosis.
== END 2020-07-24 21:52 | disposition home or self-care (01) ==
LOC: ERS 19:40
DX: S80.11XA Contusion of right lower leg, initial encounter (principal); I25.10 Atherosclerotic heart disease of native coronary artery without angina pectoris; E11.9 Type 2 diabetes mellitus without complications; E78.5 Hyperlipidemia, unspecified; E78.00 Pure hypercholesterolemia, unspecified; I10 Essential (primary) hypertension; F17.210 Nicotine dependence, cigarettes, uncomplicated; Z79.899 Other long term (current) drug therapy; W22.8XXA Striking against or struck by other objects, initial encounter
CPT/HCPCS: 36416; J1815

== ENCOUNTER 2020-09-08 08:07 | Emergency (ER) | payer SELFPAY ==
[2020-09-08] MEDS ORDERED: Dextrose 50% Abboject 50 ML SYRINGE ONE (08:17)
[2020-09-08 08:36] LABS: #Basophils 0.1 thou/uL (0.0-0.2); #Eosinphils 0.4 thou/uL (0.0-0.7); #Monocytes 0.4 thou/uL (0.11-0.59); #Neutrophils 2.6 thou/uL (1.40-6.50); %Basophils 1.3 % (0.0-1.0); %Eosinophils 6.7 % (0.0-10.0); %Lymphocytes 46.3 % (21.0-51.0); %Monocytes 5.6 % (0.0-10.0); Hemoglobin 12.9 g/dL (12.0-16.0); Mean Corpuscular HGB CONC 33.8 g/dL (32.0-36.0); Mean Corpuscular Hemoglobin 30.6 pg (27.0-31.0); Mean Corpuscular Volume 90.4 fL (78.0-98.0); Mean Platelet Volume 7.7 fL (7.4-10.4); Platelet Count 260 thou/uL (130-400); RBC Distribution Width 11.2 % (11.5-14.5); Red Blood Cell (RBC) Count 4.21 mill/uL (4.20-5.40); White Blood Cell (WBC) Count 6.5 thou/uL (4.8-10.8)
[2020-09-08 09:01] LABS: ALT (SGPT) 24 U/L (8-55); AST (SGOT) 31 U/L (5-34); Alkaline Phosphatase 95 U/L (40-110); Anion Gap 14 mmol/L (10-20); BUN (Urea Nitrogen) 18 mg/dL (9.8-20.1); Bilirubin, Total 0.3 mg/dL (0.2-1.2); CK (CPK) 146 U/L (29-168); Calc. Creatinine Clearance 0 mL/min (70-130); Calcium 9.1 mg/dL (7.8-10.44); Carbon Dioxide 26 mmol/L (23-31); Chloride 107 mmol/L (98-107); Estimated GFR-MDRD 61; Globulin 3.1 g/dL (2.4-3.5); Lipase 19 U/L (8-78); Potassium 3.8 mmol/L (3.5-5.1); Protein, Total 7.1 g/dL (6.0-8.3); Sodium 143 mmol/L (136-145)
[2020-09-08 09:04] LABS: Glucose 30 mg/dL (80-115)
== END 2020-09-08 09:50 | disposition home or self-care (01) ==
LOC: ERS 08:07
DX: E11.649 Type 2 diabetes mellitus with hypoglycemia without coma (principal); E78.5 Hyperlipidemia, unspecified; E78.00 Pure hypercholesterolemia, unspecified; I10 Essential (primary) hypertension; F17.210 Nicotine dependence, cigarettes, uncomplicated; Z79.899 Other long term (current) drug therapy; Z79.4 Long term (current) use of insulin
CPT/HCPCS: 36416; 80053; 82550; 83690; 84484; 85025; 93005; 96374

== ENCOUNTER 2023-01-05 14:13 | Emergency (ER) | payer SELFPAY ==
[2023-01-05 14:56] LABS: #Basophils 0.1 thou/uL (0.0-0.2); #Eosinphils 0.2 thou/uL (0.0-0.7); #Lymphocytes 1.5 thou/uL (1.20-3.40); #Monocytes 0.3 thou/uL (0.11-0.59); #Neutrophils 3.9 thou/uL (1.40-6.50); %Eosinophils 2.9 % (0.0-10.0); %Lymphocytes 25.4 % (21.0-51.0); %Monocytes 4.3 % (0.0-10.0); %Neutrophils 66.4 % (42.0-75.0); Hemoglobin 11.6 g/dL (12.0-16.0); Mean Corpuscular HGB CONC 34.5 g/dL (32.0-36.0); Mean Corpuscular Hemoglobin 31.6 pg (27.0-31.0); Mean Corpuscular Volume 91.6 fl (78.0-98.0); Mean Platelet Volume 7.7 fL (7.4-10.4); Platelet Count 231 10x3/uL (130-400); RBC Distribution Width 11.4 % (11.5-14.5); Red Blood Cell (RBC) Count 3.67 mill/uL (4.20-5.40); White Blood Cell (WBC) Count 5.9 10x3/uL (4.8-10.8)
[2023-01-05 15:11] LABS: Bilirubin Negative (Negative); Blood, Urine Negative (Negative); Clarity Clear (Clear); Glucose, Urine (Dipstick) Greater than 1000 mg/dL (Negative); Ketone, Urine Trace mg/dL (Negative); Leukocyte Negative Leu/uL (Negative); Nitrite Negative (Negative); Protein, Urine (Dipstick) 30 mg/dL (Neg-Trace); RBC/HPF 0-3 HPF (0-3); Specific Gravity, Urine 1.014 (1.002-1.036); Squamous Epithelial 0-3 HPF (0-3); Urobilinogen Normal mg/dL (Less than 2); WBC/HPF 0-3 HPF (0-3)
[2023-01-05 15:12] LABS: Bacteria/HPF Rare-Few HPF (None Seen)
[2023-01-05 15:20] LABS: Magnesium 1.9 mg/dL (1.6-2.6)
[2023-01-05 15:22] LABS: ALT (SGPT) 16 U/L (8-55); AST (SGOT) 19 U/L (5-34); Albumin 3.7 g/dL (3.4-4.8); Alkaline Phosphatase 104 U/L (40-110); Anion Gap 14 mmol/L (10-20); BUN (Urea Nitrogen) 36 mg/dL (9.8-20.1); Bilirubin, Total 0.9 mg/dL (0.2-1.2); Calc. Creatinine Clearance 0 mL/min (70-130); Calcium 8.9 mg/dL (7.8-10.44); Carbon Dioxide 21 mmol/L (23-31); Chloride 101 mmol/L (98-107); Estimated GFR 40; Potassium 4.8 mmol/L (3.5-5.1); Protein, Total 6.7 g/dL (5.8-8.1); Sodium 131 mmol/L (136-145)
[2023-01-05 15:27] LABS: Glucose 509 mg/dL (80-115)
[2023-01-05] MEDS ORDERED: Insulin Regular 300 UNITS/3 ML VIAL ONE (16:39)
[2023-01-05 16:48] LABS: Actual Bicarbonate (HCO3v) 26 mEq/L (22-28); Calcium, Ionized (venous) 1.15 mmol/L (1.16-1.32); Chloride (VBG) 99 mmol/L (98-106); Hemoglobin (Hb) 11.2 g/dL (11.7-16.0); Potassium (VBG) 4.93 mmol/L (3.70-5.30); Sodium 132.1 mmol/L (133-146); pH (venous) 7.27 (7.32-7.43)
[2023-01-05] MEDS ORDERED: Metoclopramide HCl 10 MG/2 ML VIAL ONE (16:50)
== END 2023-01-05 19:02 | disposition home or self-care (01) ==
LOC: ERS 14:13
DX: E11.65 Type 2 diabetes mellitus with hyperglycemia (principal); R51.9 Headache, unspecified; I25.10 Atherosclerotic heart disease of native coronary artery without angina pectoris; E11.9 Type 2 diabetes mellitus without complications; E78.00 Pure hypercholesterolemia, unspecified; I10 Essential (primary) hypertension; F17.210 Nicotine dependence, cigarettes, uncomplicated; Z79.4 Long term (current) use of insulin
CPT/HCPCS: 36415; 36416; 80053; 81003; 81015; 82010; 82805; 83735; 84100; 85025; 96361; 96374; J1815; J2765

== ENCOUNTER 2023-01-10 14:32 | Emergency (ER) | payer SELFPAY | END 2023-01-10 16:27 | disposition home or self-care (01) | LOC: ERS 14:32 | DX: S40.022A Contusion of left upper arm, initial encounter (principal); M25.512 Pain in left shoulder; I10 Essential (primary) hypertension; E78.5 Hyperlipidemia, unspecified; I25.10 Atherosclerotic heart disease of native coronary artery without angina pectoris; E11.9 Type 2 diabetes mellitus without complications; Z79.4 Long term (current) use of insulin; Z87.891 Personal history of nicotine dependence; Z79.899 Other long term (current) drug therapy; Y99.0 Civilian activity done for income or pay ==

== ENCOUNTER 2023-01-26 17:22 | Emergency (ER) | payer SELFPAY ==
[2023-01-26] MEDS ORDERED: predniSONE 20 MG TAB ONE (19:02)
[2023-01-26] MEDS ORDERED: Ketorolac Tromethamine 30 MG/ML VIAL ONE (19:02)
== END 2023-01-26 19:26 | disposition home or self-care (01) ==
LOC: ERS 17:22
DX: M25.461 Effusion, right knee (principal); I10 Essential (primary) hypertension; E78.5 Hyperlipidemia, unspecified; I25.10 Atherosclerotic heart disease of native coronary artery without angina pectoris; E11.9 Type 2 diabetes mellitus without complications; Z79.4 Long term (current) use of insulin; Z79.899 Other long term (current) drug therapy; Z87.891 Personal history of nicotine dependence
CPT/HCPCS: 96372; J1885; J7512

== ENCOUNTER 2023-10-04 13:14 | Emergency (ER) | payer OTHER, SELFPAY ==
[2023-10-04] MEDS ORDERED: Ketorolac Tromethamine 30 MG/ML VIAL ONE (14:35)
== END 2023-10-04 14:45 | disposition home or self-care (01) ==
LOC: ERS 13:14
DX: S29.9XXA Unspecified injury of thorax, initial encounter (principal); W17.89XA Other fall from one level to another, initial encounter; I10 Essential (primary) hypertension; I25.10 Atherosclerotic heart disease of native coronary artery without angina pectoris; E11.9 Type 2 diabetes mellitus without complications; E78.5 Hyperlipidemia, unspecified; Z87.891 Personal history of nicotine dependence; Z79.4 Long term (current) use of insulin; Z79.02 Long term (current) use of antithrombotics/antiplatelets; Z79.899 Other long term (current) drug therapy
CPT/HCPCS: 71045; 96372; J1885

== ENCOUNTER 2023-12-13 22:28 | Emergency (ER) | payer BC ==
[2023-12-13] MEDS ORDERED: HYDROcodone/Acetaminophen 5/325 mg Tablet ONE (23:46)
[2023-12-14] MEDS ORDERED: Dexamethasone 10 MG/ML VIAL ONE (01:39)
== END 2023-12-14 01:45 | disposition home or self-care (01) ==
LOC: ERS 22:28
DX: M25.512 Pain in left shoulder (principal); I10 Essential (primary) hypertension; E78.5 Hyperlipidemia, unspecified; I25.10 Atherosclerotic heart disease of native coronary artery without angina pectoris; E11.9 Type 2 diabetes mellitus without complications
CPT/HCPCS: J1100

== ENCOUNTER 2024-03-10 08:43 | Outpatient (CLI) | payer MEDICARE | END 2024-03-10 08:44 | disposition home or self-care (01) | LOC: BICMRI 08:43 | PROVIDERS: ATTEND Orthopaedic Surgery | DX: S46.012A Strain of muscle(s) and tendon(s) of the rotator cuff of left shoulder, initial encounter (principal); M75.112 Incomplete rotator cuff tear or rupture of left shoulder, not specified as traumatic; M19.012 Primary osteoarthritis, left shoulder; S43.085A Other dislocation of left shoulder joint, initial encounter ==

== ENCOUNTER 2024-07-09 09:47 | Outpatient (CLI) | payer OTHER, MEDICAID | END 2024-07-09 09:48 | disposition home or self-care (01) | LOC: SCSMRI 09:47 | PROVIDERS: ATTEND Orthopaedic Surgery | DX: M47.22 Other spondylosis with radiculopathy, cervical region (principal); M48.02 Spinal stenosis, cervical region; M50.11 Cervical disc disorder with radiculopathy, high cervical region; M50.121 Cervical disc disorder at C4-C5 level with radiculopathy; M50.122 Cervical disc disorder at C5-C6 level with radiculopathy | CPT/HCPCS: 72141 ==